=== PATIENT | female | born 1960 | race Caucasian/White ===

== ENCOUNTER → 2018-02-23 | Outpatient (CLI) | payer OTHER | LOC: M RAD 15:51 | DX: M51.36 Other intervertebral disc degeneration, lumbar region (principal); M51.26 Other intervertebral disc displacement, lumbar region; M48.061 Spinal stenosis, lumbar region without neurogenic claudication | CPT/HCPCS: 72148 ==

== ENCOUNTER → 2018-06-18 | Outpatient (REF) | payer OTHER ==
[2018-06-18 13:55] LABS: PLATELET COUNT, AUTOMATED 119 10^3/uL (150-450)
[2018-06-18 14:05] LABS: INR 0.97; PARTIAL THROMBOPLASTIN TIME 27.8 SECONDS (25.4-37.6)
[2018-06-18 14:17] LABS: COLLAGEN EPINEPHRINE 166 SECONDS (74-162)
[2018-06-18 19:09] LABS: COLLAGEN ADP 110 SECONDS (56-103)
== END ==
LOC: M LABDRAW1 13:02
DX: Z01.812 Encounter for preprocedural laboratory examination (principal); M51.36 Other intervertebral disc degeneration, lumbar region
CPT/HCPCS: 85049

== ENCOUNTER → 2018-07-12 | Outpatient (CLI) | payer OTHER ==
[2018-07-12 16:25] LABS: COLLAGEN EPINEPHRINE 105 SECONDS (74-162)
== END ==
LOC: M LAB 15:50
DX: M51.37 Other intervertebral disc degeneration, lumbosacral region (principal); M47.817 Spondylosis without myelopathy or radiculopathy, lumbosacral region; M48.07 Spinal stenosis, lumbosacral region; M43.17 Spondylolisthesis, lumbosacral region
CPT/HCPCS: 36415

== ENCOUNTER → 2018-07-21 | Outpatient (CLI) | payer OTHER | LOC: M RAD 11:04 | DX: Z12.31 Encounter for screening mammogram for malignant neoplasm of breast (principal); N63.10 Unspecified lump in the right breast, unspecified quadrant | CPT/HCPCS: 77067 ==

== ENCOUNTER → 2018-07-23 | Outpatient (REF) | payer OTHER ==
[2018-07-23 18:00] LABS: BASO % 0.3 % (0.0-1.0); EOS # 0.1 10^3/uL (0.0-0.50); HEMATOCRIT 45.1 % (36.0-47.0); IMMATURE GRANULOCYTE % 0.9 % (0-3.0); LYMPH # 1.9 10^3/uL (1.5-4.5); LYMPH % 18.1 % (24.0-44.0); MEAN CORPUSCULAR HEMOGLOBIN 29.7 pg (27.0-33.0); MEAN CORPUSCULAR HGB CONC 33.3 g/dl (32.0-36.5); MEAN CORPUSCULAR VOLUME 89.3 fl (80.0-96.0); MONO # 0.9 10^3/uL (0.0-0.8); MONO % 8.1 % (0.0-5.0); NEUTROPHILS # 7.5 10^3/uL (1.8-7.7); NEUTROPHILS % 71.6 % (36.0-66.0); PLATELET COUNT, AUTOMATED 104 10^3/uL (150-450); RED BLOOD COUNT 5.05 10^6/uL (4.00-5.40); WHITE BLOOD COUNT 10.5 10^3/uL (4.0-10.0)
== END ==
LOC: M LAB REF 16:28
DX: D69.6 Thrombocytopenia, unspecified (principal)
CPT/HCPCS: 85025

== ENCOUNTER → 2018-08-05 | Outpatient (CLI) | payer OTHER | LOC: M RAD 12:14 | DX: N63.13 Unspecified lump in the right breast, lower outer quadrant (principal) | CPT/HCPCS: 77065 ==

== ENCOUNTER → 2018-08-19 | Outpatient (CLI) | payer OTHER ==
[~2018-08-19] MED LIST: LIDOCAINE 1% MDV 20ML VIAL As Ordered ONE
--- NOTE | 2018-08-19 13:49 | REP ---
ULTRASOUND RIGHT BREAST: Ultrasound right breast was performed in the region of 2-o'clock to 4-o'clock at the site of the small nodule seen on the prior ultrasound dated 08/05/2018. The previously noted nodule at 4-o'clock cannot be visualized on today's exam. Repeat mammogram was performed in the MLO and CC projections and show persistence of a nodule at the 3-o'clock position of the right breast. We will perform the biopsy using stereotactic guidance instead of ultrasound guidance. Electronically Signed by Javed Valentino MD 08/19/2018 04:32 P
--- NOTE | 2018-08-19 14:35 | REP ---
POST BIOPSY MAMMOGRAM RIGHT BREAST: Post biopsy mammogram right breast was performed in the MLO, ML and CC projections. A metallic biopsy marking clip is seen at the site of the small nodule in the medial right breast status-post stereotactic biopsy. Electronically Signed by Javed Valentino MD 08/19/2018 04:35 P
--- NOTE | 2018-08-19 14:40 | REP ---
STEREOTACTIC BIOPSY RIGHT BREAST: Patient presented today for ultrasound guided biopsy of a small subcentimeter nodule in the medial aspect of the right breast. The other nodule could not be seen sonographically. Mammography of the right breast showed persistence of the nodule. Stereotactic biopsy of the nodule was performed. Informed consent was obtained. CC approach was utilized. Stereotactic paired images show a nodule in the biopsy window. Under sterile conditions and after satisfactory administration of local anesthesia, using an 8-core vacuum-assisted biopsy device, six core biopsy samples are obtained without difficulty. A metallic marking clip was placed at the site of the biopsy. Needle was removed and hemostasis obtained. There were no immediate complications. A post-procedure mammogram shows the metallic clip at the site of the nodule. Electronically Signed by Javed Valentino MD 08/19/2018 04:35 P
== END ==
LOC: M RADPRO 11:02
PROVIDERS: ATTEND Surgery
DX: D24.1 Benign neoplasm of right breast (principal)

== ENCOUNTER → 2018-09-14 | Outpatient (REF) | payer OTHER, MEDICAID ==
[2018-09-14 17:04] LABS: BASO % 0.4 % (0.0-1.0); EOS # 0.2 10^3/uL (0.0-0.50); EOS % 2.3 % (0.0-3.0); HEMATOCRIT 38.8 % (36.0-47.0); HEMOGLOBIN 13.8 g/dl (12.0-15.5); LYMPH # 2.3 10^3/uL (1.5-4.5); LYMPH % 31.3 % (24.0-44.0); MEAN CORPUSCULAR HEMOGLOBIN 33.3 pg (27.0-33.0); MEAN CORPUSCULAR HGB CONC 35.6 g/dl (32.0-36.5); MEAN CORPUSCULAR VOLUME 93.7 fl (80.0-96.0); MONO # 0.6 10^3/uL (0.0-0.8); MONO % 8.5 % (0.0-5.0); NEUTROPHILS # 4.2 10^3/uL (1.8-7.7); NEUTROPHILS % 57.1 % (36.0-66.0); RED BLOOD COUNT 4.14 10^6/uL (4.00-5.40); WHITE BLOOD COUNT 7.3 10^3/uL (4.0-10.0)
== END ==
LOC: M LAB REF 16:40
PROVIDERS: ATTEND Family Medicine Addiction Medicine
DX: D69.6 Thrombocytopenia, unspecified (principal)

== ENCOUNTER → 2018-11-29 | Outpatient (CLI) | payer OTHER | LOC: M CARPUL 12:48 | PROVIDERS: ATTEND Internal Medicine Cardiovascular Disease | DX: R06.02 Shortness of breath (principal); Z53.9 Procedure and treatment not carried out, unspecified reason ==

== ENCOUNTER → 2018-12-16 | Outpatient (REF) | payer OTHER ==
[2018-12-18 15:08] LABS: HPV HYBRID CAPTURE II Negative (Negative)
== END ==
LOC: M LAB REF 18:37
PROVIDERS: ATTEND Nurse Practitioner Family
DX: Z12.4 Encounter for screening for malignant neoplasm of cervix (principal)

== ENCOUNTER → 2019-01-28 | Outpatient (REF) | payer OTHER, MEDICAID ==
[2019-01-28 14:17] LABS: ALBUMIN 3.8 GM/DL (3.2-5.2); ALT/SGPT 52 U/L (12-78); BILIRUBIN,TOTAL 0.5 MG/DL (0.2-1.0); BLOOD UREA NITROGEN 20 MG/DL (7-18); CALCIUM LEVEL 8.5 MG/DL (8.5-10.1); CARBON DIOXIDE LEVEL 27 MEQ/L (21-32); CHLORIDE LEVEL 106 MEQ/L (98-107); CHOLESTEROL LEVEL 166 MG/DL (<200); CHOLESTEROL RISK RATIO 6.148 (<5); CREATININE FOR GFR 0.75 MG/DL (0.55-1.30); GLOMERULAR FILTRATION RATE > 60.0 (>51); GLUCOSE, FASTING 134 MG/DL (70-100); HDL CHOLESTEROL 27 MG/DL (>40); LDL CHOLESTEROL 92 MG/DL (<100); NON-HDL-C 139 MG/DL; POTASSIUM SERUM 4.1 MEQ/L (3.5-5.1); SODIUM LEVEL 141 MEQ/L (136-145); TOTAL PROTEIN 7.8 GM/DL (6.4-8.2); TRIGLYCERIDES LEVEL 237 MG/DL (<150)
== END ==
LOC: M LAB REF 12:54
PROVIDERS: ATTEND Family Medicine Addiction Medicine
DX: Z00.00 Encounter for general adult medical examination without abnormal findings (principal)

== ENCOUNTER → 2019-02-15 | Outpatient (CLI) | payer OTHER ==
--- NOTE | 2019-02-17 20:45 | SLEEPHOME ---
DATE OF PROCEDURE: 02/15/2019 ORDERED BY: Kasihf Patel PA-C Diagnostic home sleep testing was performed due to concern for the obstructive sleep apnea syndrome in this patient with a history of excessive somnolence and nonrestorative sleep. For testing, a nocturnal T3 respiratory monitoring device was used. Continuous record was made of pulse, oxygen saturation, airflow, chest, abdominal strain and body position. 9 hours and 59 minutes of data were reviewed. There 5 hours of 57 minutes marked as time in bed. During the interval marked time in bed there were 44 respiratory events identified of 10 seconds in duration or greater for a respiratory event index of 7.4. The events were primarily obstructive. Baseline pulse rate 78, pulse rate ranged 63-113. Baseline saturation was 90%. Saturations fell to 73%. Testing was performed in both the supine and nonsupine positions. IMPRESSION Abnormal home sleep testing with repetitive respiratory events and oxygen desaturations to 73% with a respiratory event index of 7.4 is consistent with the obstructive sleep apnea syndrome. RECOMMENDATIONS The patient should undergo formal sleep evaluation.
== END ==
LOC: M SLEEP HO 10:17
PROVIDERS: ATTEND Physician Assistant
DX: R40.0 Somnolence (principal)

== ENCOUNTER → 2019-02-15 | Outpatient (CLI) | payer OTHER ==
[~2019-02-15] MED LIST changes: -LIDOCAINE 1% MDV 20ML VIAL As Ordered ONE; +METHACHOLINE KIT (J7674) INH ONE
--- NOTE | 2019-02-15 10:13 | PFTRPT ---
Height: 60.00 Inches Weight: 153.00 Lbs BSA: 1.67 Diagnosis: R06.00 DATE OF PROCEDURE: 02/15/2019 ORDERED BY: Ras Patel PA-C INTERPRETATION: Study of excellent technical quality. Under protocol, methacholine was administered. Marked difficulty with the required maneuvers is noted. At a dose of 0.025 mg (0.125 CDUs), a 26% decline in the FEV1 was noted. No PC calculated. Difficulty with the maneuver hampers data acquisition. Flow rates did return to baseline post bronchodilator administration. IMPRESSION: Probably positive methacholine challenge study. MTDD
== END ==
LOC: M CARPUL 09:10
PROVIDERS: ATTEND Physician Assistant
DX: R06.00 Dyspnea, unspecified (principal)
CPT/HCPCS: 94070; 95070; J7674

== ENCOUNTER → 2019-07-15 | Outpatient (REF) | payer OTHER ==
[2019-07-15 18:05] LABS: ALT/SGPT 24 U/L (12-78); BILIRUBIN,TOTAL 0.7 MG/DL (0.2-1.0); BLOOD UREA NITROGEN 20 MG/DL (7-18); CALCIUM LEVEL 9.4 MG/DL (8.5-10.1); CARBON DIOXIDE LEVEL 27 MEQ/L (21-32); CHLORIDE LEVEL 106 MEQ/L (98-107); CHOLESTEROL LEVEL 199 MG/DL (<200); CHOLESTEROL RISK RATIO 4.522 (<5); CREATININE FOR GFR 0.67 MG/DL (0.55-1.30); GLOMERULAR FILTRATION RATE > 60.0 (>51); GLUCOSE, FASTING 123 MG/DL (70-100); HDL CHOLESTEROL 44 MG/DL (>40); LDL CHOLESTEROL 134 MG/DL (<100); NON-HDL-C 155 MG/DL; POTASSIUM SERUM 3.9 MEQ/L (3.5-5.1); SODIUM LEVEL 139 MEQ/L (136-145); TOTAL PROTEIN 8.2 GM/DL (6.4-8.2); TRIGLYCERIDES LEVEL 103 MG/DL (<150)
[2019-07-15 18:28] LABS: HEMOGLOBIN A1c 5.9 %
== END ==
LOC: M LAB REF 16:36
PROVIDERS: ATTEND Nurse Practitioner Family
DX: Z00.00 Encounter for general adult medical examination without abnormal findings (principal)

== ENCOUNTER → 2020-05-28 | Outpatient (REF) | payer OTHER, MEDICAID ==
[2020-05-28 13:05] LABS: ALBUMIN 3.6 GM/DL (3.2-5.2); ALT/SGPT 25 U/L (12-78); BILIRUBIN,TOTAL 0.5 MG/DL (0.2-1.0); BLOOD UREA NITROGEN 16 MG/DL (7-18); CALCIUM LEVEL 8.7 MG/DL (8.5-10.1); CARBON DIOXIDE LEVEL 30 MEQ/L (21-32); CHLORIDE LEVEL 106 MEQ/L (98-107); CHOLESTEROL LEVEL 159 MG/DL (<200); CHOLESTEROL RISK RATIO 4.968 (<5); CREATININE FOR GFR 0.73 MG/DL (0.55-1.30); GLOMERULAR FILTRATION RATE > 60.0 (>51); GLUCOSE, FASTING 107 MG/DL (70-100); HDL CHOLESTEROL 32 MG/DL (>40); LDL CHOLESTEROL 79 MG/DL (<100); NON-HDL-C 127 MG/DL; SODIUM LEVEL 141 MEQ/L (136-145); TOTAL PROTEIN 7.3 GM/DL (6.4-8.2); TRIGLYCERIDES LEVEL 241 MG/DL (<150)
[2020-05-28 13:28] LABS: HEMOGLOBIN A1c 5.7 %
== END ==
LOC: M LAB REF 12:14
PROVIDERS: ATTEND Family Medicine Addiction Medicine
DX: R73.03 Prediabetes (principal); E78.1 Pure hyperglyceridemia

== ENCOUNTER → 2020-11-05 | Outpatient (REF) | payer OTHER, MEDICAID ==
[2020-11-05 17:28] LABS: HEMOGLOBIN A1c 5.9 %
[2020-11-05 17:32] LABS: ALBUMIN 3.9 GM/DL (3.2-5.2); ALT/SGPT 26 U/L (12-78); BILIRUBIN,TOTAL 0.9 MG/DL (0.2-1.0); BLOOD UREA NITROGEN 12 MG/DL (7-18); CALCIUM LEVEL 8.7 MG/DL (8.5-10.1); CARBON DIOXIDE LEVEL 30 MEQ/L (21-32); CHLORIDE LEVEL 102 MEQ/L (98-107); CHOLESTEROL LEVEL 154 MG/DL (<200); CHOLESTEROL RISK RATIO 4.052 (<5); CREATININE FOR GFR 0.64 MG/DL (0.55-1.30); GLOMERULAR FILTRATION RATE > 60.0 (>51); GLUCOSE, FASTING 107 MG/DL (70-100); HDL CHOLESTEROL 38 MG/DL (>40); LDL CHOLESTEROL 98 MG/DL (<100); NON-HDL-C 116 MG/DL; POTASSIUM SERUM 3.7 MEQ/L (3.5-5.1); SODIUM LEVEL 138 MEQ/L (136-145); TOTAL PROTEIN 7.3 GM/DL (6.4-8.2); TRIGLYCERIDES LEVEL 90 MG/DL (<150)
== END ==
LOC: M LAB REF 16:25
PROVIDERS: ATTEND Family Medicine Addiction Medicine
DX: E03.9 Hypothyroidism, unspecified (principal); R73.03 Prediabetes

== ENCOUNTER 2020-11-13 16:43 | Inpatient (IN) | payer OTHER, MEDICAID ==
[~2020-11-13] VITALS: Ht 152.4 cm; Wt 76.2 kg
[2020-11-13] MEDS ORDERED: DULO1CAP5 PO (17:09)
[2020-11-13] MEDS ORDERED: GABA600T4 PO (17:09)
[2020-11-13] MEDS ORDERED: ALBU8.5H INH (17:09)
[2020-11-13] MEDS ORDERED: DULO1CAP6 PO (17:09)
[2020-11-13] MEDS ORDERED: LEVO50TA5 PO (17:09)
[2020-11-13] MEDS ORDERED: ARNU1INH3 INH (17:09)
[2020-11-13] MEDS ORDERED: MELO15TA28 PO (17:09)
[2020-11-13] MEDS ORDERED: NS 1,000 ML IV ONE (18:25)
[2020-11-13] MEDS ORDERED: ONDANSETRON 4MG/2ML VIAL IV ONE (18:25)
[2020-11-13 18:36] LABS: VENOUS BASE EXCESS 3.7 (-2.0-2.0); VENOUS HCO3 28.7 MEQ/L (23.0-27.0); VENOUS O2 SATURATION 66.4 % (60.0-80.0); VENOUS PARTIAL PRESSURE CO2 44.7 mmHg (38.0-50.0); VENOUS PARTIAL PRESSURE O2 35.1 mmHg (30.0-50.0); VENOUS PH 7.425 UNITS (7.330-7.430)
[2020-11-13 18:40] LABS: BASO % 0.3 % (0.0-1.0); EOS % 0.1 % (0.0-3.0); HEMATOCRIT 40.8 % (36.0-47.0); HEMOGLOBIN 13.6 g/dl (12.0-15.5); LYMPH # 1.2 10^3/uL (1.5-5.0); LYMPH % 16.1 % (24.0-44.0); MEAN CORPUSCULAR HEMOGLOBIN 29.3 pg (27.0-33.0); MEAN CORPUSCULAR HGB CONC 33.3 g/dl (32.0-36.5); MEAN CORPUSCULAR VOLUME 87.9 fl (80.0-96.0); MONO # 0.7 10^3/uL (0.0-0.8); MONO % 9.4 % (2.0-8.0); NEUTROPHILS # 5.7 10^3/uL (1.5-8.5); NEUTROPHILS % 73.4 % (36.0-66.0); PLATELET COUNT, AUTOMATED 174 10^3/uL (150-450); RED BLOOD COUNT 4.64 10^6/uL (4.00-5.40); WHITE BLOOD COUNT 7.7 10^3/uL (4.0-10.0)
--- NOTE | 2020-11-13 18:46 | REP ---
INDICATION: cough, SOB. COMPARISON: Comparison chest x-ray November 25, 2018. TECHNIQUE: Portable upright AP chest radiograph. FINDINGS: There are patchy infiltrates in the right perihilar, lower lobe, and upper lobe region consistent with pneumonia. Few increased markings are seen in the left perihilar region. Pleural angles are sharp. Cardiomediastinal silhouette is unremarkable.. Pulmonary vasculature is not increased. Monitoring electrodes are seen. IMPRESSION: Patchy bilateral infiltrates right greater than left. Findings consistent with pneumonia.. <Electronically signed by Frederic Rosas > 11/13/20 [id number]
[2020-11-13 19:00] LABS: D-DIMER QUANT 446.85 ng/ml (<500)
[2020-11-13 19:23] LABS: ALBUMIN 3.4 GM/DL (3.2-5.2); ALT/SGPT 25 U/L (12-78); BILIRUBIN,DIRECT 0.3 MG/DL (0.0-0.2); BILIRUBIN,TOTAL 0.8 MG/DL (0.2-1.0); CK-MB VALUE MASS < 1.0 NG/ML (<3.6); CPK CREATINE PHOSPHOKINASE 44 U/L (26-192); MB/CK RELATIVE INDEX 2.27 (< OR =4); NT-PRO BNP 54 PG/ML (<125); THYROXINE (T4) 16.2 UG/DL (4.5-12.0); TOTAL PROTEIN 7.3 GM/DL (6.4-8.2); TROPONIN I < 0.02 NG/ML (< 0.10)
[2020-11-13 19:30] LABS: RSV AMPLIFICATION NEGATIVE (NEGATIVE)
[2020-11-13] MEDS ORDERED: ACETAMINOPHEN TAB 650MG DOSE (2X325MG) PO PRN (20:25)
[2020-11-13] MEDS ORDERED: MOM 30ML SUSPENSION UDC PO PRN (20:25)
[2020-11-13] MEDS ORDERED: MAALOX 30 ML SUSP *UDC PO PRN (20:25)
--- NOTE | 2020-11-13 20:29 | HPEPDOC ---
[facility] Medical History & Physical Date of Admission Nov 13, 2020 Date of Service: Nov 13, 2020 Other Provider Eladio Parra MD Attending Physician: LILIA GODDARD MD History and Physical TIME OF SERVICE: 955pm CHIEF COMPLAINT: shortness of breath HISTORY OF PRESENT ILLNESS: This 59 yr old F presented w c/o shortness of breath for 1 week, fatigue, productive cough, poor appetite, dizziness, nausea. She recently attended a gender reveal democrat with multiple family members who were diagnosed with COVID. She tested neg for COVID while at an urgent care center today but she was sent to the ER bc her O2 sats were low. Per d/w Latoya the pts O2 sats were as low as the mid 80s on RA and the pt became tachypneic when she walks. REVIEW OF SYSTEMS: 12-point review of systems negative except as listed in HPI PAST MEDICAL/ SURGICAL HISTORY: Asthma Hyperthyroidism ANGELA Class 1 obesity Appendectomy x 4 SOCIAL HISTORY: she doesnt smoke FAMILY HISTORY: n/a ALLERGIES: Please see below. HOME MEDICATIONS: Please see below. PHYSICAL EXAMINATION: Vital Signs Date Time Temp Pulse Resp B/P (MAP) Pulse Ox O2 Delivery O2 Flow Rate FiO2 11/13/20 16:46 99.0 91 20 128/66 (86) 95 Room Air 11/13/20 22:35 2.0 GENERAL APPEARANCE: well nourished and developed / NAD HEENT: EOMI/ NC in place CARDIOVASCULAR: RRR/NMRG LUNGS: able to speak full sentences w/o stopping to breath / not using accessory muscles/ breath sounds diminished MUSCULOSKELETAL: NCAT / ROMIx 4 INTEGUMENT: not flushed or cyanotic NEUROLOGICAL: CN 2-12 intact / speech not dysarthric PSYCHIATRIC: A& ox 3 /able to understand and follow commands LABORATORY DATA: 11/13/20 18:30 11/13/20 18:30: Immature Granulocyte % (Auto) 0.7, Neutrophils (%) (Auto) 73.4H, Lymphocytes (%) (Auto) 16.1L, Monocytes (%) (Auto) 9.4H, Eosinophils (%) (Auto) 0.1, Basophils (%) (Auto) 0.3, Neutrophils # (Auto) 5.7, Lymphocytes # (Auto) 1.2L, Monocytes # (Auto) 0.7, Eosinophils # (Auto) 0.0, Basophils # (Auto) 0.0, Nucleated Red Blood Cells % (auto) 0.0, D-Dimer, Quantitative 446.85, Blood Gas Bicarbonate Standard 27.0, Venous Blood pH 7.425, Venous Blood Partial Pressure CO2 44.7, Venous Blood Partial Pressure O2 35.1, Venous Blood Total Carbon Dioxide 30.0H, Venous Blood HCO3 28.7H, Venous Blood Oxygen Saturation 66.4, Venous Blood Base Excess 3.7H, Lactic Acid Level 1.2, Total Bilirubin 0.8, Direct Bilirubin 0.3H, Aspartate Amino Transf (AST/SGOT) 23, Alanine Aminotransferase (ALT/SGPT) 25, Alkaline Phosphatase 75, Total Creatine Kinase 44, Creatine Kinase MB < 1.0, Creatine Kinase MB Relative Index 2.27, Troponin I < 0.02, OE-Ymt-D-Type Natriuretic Peptide 54, Total Protein 7.3, Albumin 3.4, Albumin/Globulin Ratio 0.9L, Thyroid Stimulating Hormone (TSH) 1.470, Thyroxine (T4) 16.2H, IMAGING: Chest xray Patchy bilateral infiltrates right greater than left. Findings consistent with pneumonia.. MICROBIOLOGY: Coronavirus (COVID-19)(PCR) POSITIVEA, Influenza Type A (RT-PCR) NEGATIVE, Influenza Type B (RT-PCR) NEGATIVE, Respiratory Syncytial Virus (PCR) NEGATIVE ASSESSMENT: is a 59 yr old w a hx of asthma, hypothyroidism, ANGELA and obesity who is admitted for hypoxemia 2/2 COVID-19. PLAN: 1 COVID-19 Plan: admit to medical floor / continuous pulse ox / supplemental O2 up to 3L with target O2 sats between 92-95% / contact & air borne precautions / f/u missing COVID labs LDH, CRP, PT/PTT and ferritin / start Remdesivir & steroids w PPI / I doubt she has PNA bc she doesnt have a fever or elevated WBC # therefore will not order procalcitonin , sputum cx, strep pneumo, legionella & mycoplasma, MRSA to r/o bacterial PNA 2. SIRS Tachycardia and tachypnea are likely reactive. She doesnt appear toxic Plan; monitor vitals 3. Chronic Asthma She is not wheezing Plan: c/w Fluticasone & albuterol 3. Hypothyroidism Plan: Levothyroxine 4. Obesity Complicates care Plan: f/u A1C DVT px w Lovenox / no ASA bc of allergy Dispo: home after at least 2 midnights stay Home Medications Scheduled Duloxetine Hcl (Duloxetine HCl) 30 Mg Capsule.dr, 30 MG PO QHS TAKES WITH 60 MG FOR 90MG TOTAL DOSE Duloxetine Hcl (Duloxetine HCl) 60 Mg Capsule.dr, 60 MG PO QHS TAKES WITH 30 MG FOR 90MG TOTAL DOSE Fluticasone Furoate (Arnuity Ellipta) 200 Mcg Blst.w.dev, 1 PUFF INH DAILY Gabapentin (Gabapentin) 600 Mg Tablet, 600 MG PO TID Levothyroxine Sodium (Levothyroxine Sodium) 50 Mcg Tablet, 50 MCG PO QAM Loperamide HCl (Anti-Diarrheal) 2 Mg Capsule, 2 MG PO BID Meloxicam (Meloxicam) 15 Mg Tablet, 15 MG PO QHS Scheduled PRN Albuterol Sulfate (Albuterol Sulfate Hfa) 8.5 Gm Hfa.aer.ad, 2 PUFFS INH QID PRN for SOB/COUGH Allergies Coded Allergies: aspirin (Verified Allergy, Unknown, 02/10/19) honey (Verified Allergy, Unknown, 02/10/19) tetracycline (Verified Allergy, Unknown, 02/10/19) meperidine (Verified Adverse Reaction, Unknown, N/V, 02/10/19) A-FIB/CHADSVASC A-FIB History Current/History of A-Fib/PAF?: No Current PO Anticoag Therapy: LILIA Douglas MD Nov 13, 2020 20:29
[2020-11-13] MEDS ORDERED: LOPE-26 PO (20:32)
--- NOTE | 2020-11-13 20:38 | ECGEPIP ---
[facility] - ED Test Date: 2020-11-13 Pat Name: ELENA COLLINS Department: Room: - Gender: Female [employer] Commanding Officer: RAUDEL : 1960 Requested By: PALOMA Garcia Order Number: [id number] Reading MD: Mark Prater Measurements Intervals Gaffney Rate: 95 P: 30 VT: 160 QRS: 18 QRSD: 66 T: 30 QT: 366 QTc: 459 Interpretive Statements Normal sinus rhythm BASELINE ARTIFACT AFFECTS INTERPRETATION NO PRIORS FOR COMPARISON Electronically Signed on 11-13-2020 20:38:30 EDT by Mark Prater
[2020-11-13 20:44] LABS: INR 1.09; PROTHROMBIN TIME 14.3 SECONDS (12.5-14.3)
[2020-11-13 20:45] LABS: PARTIAL THROMBOPLASTIN TIME 35.6 SECONDS (24.2-38.5)
[2020-11-13 20:50] LABS: C REACTIVE PROTEIN QUANTITATIV 3.01 MG/DL (0.00-0.30); FERRITIN 521 NG/ML (8-252); LDH LACTATE DEHYDROGENASE 301 U/L (84-246)
[2020-11-13] MEDS ORDERED: REMDESIVIR 200 MG in NS 250 ML IV ONE (21:30)
[2020-11-13 22:35] VITALS: BP 101/59
[2020-11-13] MEDS ORDERED: ALBUTEROL 90 MCG/ACT 8GM HFA INHALER INH PRN (22:55)
[2020-11-13] MEDS ORDERED: DULoxetine 30 MG CAP (CYMBALTA) PO SCH (22:55)
[2020-11-13] MEDS: GABAPENTIN 300 MG CAP PO SCH (23:14)
[2020-11-13] MEDS ORDERED: SODIUM CHLORIDE 0.9% INJ 10 ML SYR IV ONE (23:30)
[2020-11-14] VITALS (8 sets, daily range): BP systolic 100–105; BP diastolic 58–63; O2SAT 91–94
[2020-11-14] MEDS: FLUTICASONE HFA 220 MCG 12 GM INHALER (FLOVENT) INH SCH ×2 (00:03→07:37)
[2020-11-14 06:37] LABS: BASO % 0.2 % (0.0-1.0); EOS % 0.5 % (0.0-3.0); HEMATOCRIT 35.7 % (36.0-47.0); HEMOGLOBIN 11.7 g/dl (12.0-15.5); LYMPH # 1.3 10^3/uL (1.5-5.0); LYMPH % 20.9 % (24.0-44.0); MEAN CORPUSCULAR HEMOGLOBIN 29.2 pg (27.0-33.0); MEAN CORPUSCULAR HGB CONC 32.8 g/dl (32.0-36.5); MONO # 0.7 10^3/uL (0.0-0.8); MONO % 12.3 % (2.0-8.0); NEUTROPHILS % 65.4 % (36.0-66.0); PLATELET COUNT, AUTOMATED 145 10^3/uL (150-450); RED BLOOD COUNT 4.01 10^6/uL (4.00-5.40)
[2020-11-14 06:57] LABS: BLOOD UREA NITROGEN 9 MG/DL (7-18); CALCIUM LEVEL 7.4 MG/DL (8.5-10.1); CARBON DIOXIDE LEVEL 27 MEQ/L (21-32); CHLORIDE LEVEL 106 MEQ/L (98-107); CREATININE FOR GFR 0.44 MG/DL (0.55-1.30); GLOMERULAR FILTRATION RATE > 60.0 (>51); GLUCOSE, FASTING 108 MG/DL (70-100); POTASSIUM SERUM 3.2 MEQ/L (3.5-5.1); SODIUM LEVEL 140 MEQ/L (136-145)
[2020-11-14 07:01] LABS: HEMOGLOBIN A1c 6.1 %
[2020-11-14] MEDS ORDERED: POTASSIUM CHLORIDE 10 MEQ SR TABLET PO ONE (07:30)
[2020-11-14] MEDS: GABAPENTIN 300 MG CAP PO SCH (08:16)
[2020-11-14] MEDS ORDERED: PANTOPRAZOLE 40MG TAB (PROTONIX) PO SCH (09:00)
[2020-11-14] MEDS ORDERED: dexameTHASONE 4 MG/ML 1ML VIAL (J1100 PER 1MG) IV SCH (09:00)
[2020-11-14] MEDS ORDERED: LEVOTHYROXINE 50MCG TABLET (0.05MG) PO SCH (09:00)
[2020-11-14] MEDS ORDERED: ENOXAPARIN 40MG/0.4ML SYRINGE (J1650 PER 10MG) SC SCH (09:00)
[2020-11-14] MEDS ORDERED: BENZ200C70 PO (11:21)
[2020-11-14] MEDS ORDERED: PANT40TA29 PO (11:21)
[2020-11-14] MEDS ORDERED: VENTAER INH (11:21)
[2020-11-14] MEDS ORDERED: DEXA6TAB PO (11:21)
[2020-11-14] MEDS ORDERED: ONDANSETRON 4 MG ORAL DISINTEGRATING TAB PO ONE (11:35)
[2020-11-14] MEDS ORDERED: ZOFR4TAB16 PO (11:37)
--- NOTE | 2020-11-14 15:33 | DS.PDOC ---
Discharge Summary General Date of Admission Nov 13, 2020 at 22:53 Date of Discharge 11/14/20 Attending Physician: CRISTA KENNEDY MD Specialist/Consultants Involve Primary Care Provider: Eladio Parra MD Discharge Summary PROCEDURES PERFORMED DURING STAY: [None]. ADMITTING DIAGNOSES: 1. Hypoxia 2/2 COVID-19 Pneumonia 2. Diarrhea 3. Obesity DISCHARGE DIAGNOSES: 1. Hypoxia 2/2 COVID-19 Pneumonia 2. Diarrhea 3. Obesity COMPLICATIONS/CHIEF COMPLAINT: Covid-19. HISTORY OF PRESENT ILLNESS: Patient is a 59 year old female with a past medical history significant for asthma, hyperthyroidism, ANGELA, and obesity who presented to the [facility] ER with complaint of increased shortness of breath over the past week, cough, fatigue, and diarrhea. Patient had stated that she attended a democrat/gathering for a gender [employer] democrat a week or so prior to the start of her symptoms. She stated that a few of the people who attended had recently tested positive for COVID-19. At the time the patient had presented to an urgent care for testing. She had apparently tested negative however had continued shortness of breath and therefore presented to the ED. In the ED the patient was noted to be hypoxic. Reportedly the patient had O2 saturation as low as the mid 80's on room air and was noted to become tachypneic with exertion. Patient did receive a chest x-ray which demonstrated bilateral patchy infiltrates which is consistent with a viral pneumonia HOSPITAL COURSE: On hospitalization the patient was given a loading dose of remdesivir. She was continued on nasal cannula overnight. The patient was hypoxic. She was not requiring high levels of oxygen supplementation. In the AM the patient stated she felt ok. She did state that she had decrease in taste and therefore she did not like eating. Additionally she stated that she had some loose stools although she has a history of IBS. The patient stated that she felt good enough to go home. She was only requiring 1L NC. The patient was discharged home on 1L supplemental oxygen. She was given an albuterol HFA prn, Benzonatate, and a 4 day course of Decadron to finish a total of 6 days. Patient was instructed to stay hydrated and try to eat. She stated that she had some nausea and was given a script for Zofran. Patient was recommended to follow-up with her PCP after her quarantine. She was instructed to avoid large gatherings and adhere to CDC and public health guidelines now and after she recovers. DISCHARGE MEDICATIONS: Please see below. ALLERGIES: Please see below. PHYSICAL EXAMINATION ON DISCHARGE: VITAL SIGNS: Please see below. GENERAL: Awake, alert, and oriented. Appears in no acute distress. Lying comfortably in bed. HEENT: Atraumatic, normocephalic. Eyes are nonicteric. Trachea is midline. M ucous membranes are pink and moist. Missing teeth otherwise fair dentition NECK: No palpable cervical, axillary, or supraclavicular lymphadenopathy CARDIOVASCULAR EXAMINATION: Normal S1, S2. Regular rate and rhythm. No clicks rubs or murmurs RESPIRATORY EXAMINATION: Mild crackles in the bases bilaterally. No wheezes or rhonchi. Symmetric chest expansion. ABDOMINAL EXAMINATION: Obese. Soft, nondistended. Nontender. Normoactive bowel sounds EXTREMITIES: No edema. Full and equal pulses in bilateral upper and lower extremities SKIN: No rashes or lesions NEUROLOGICAL EXAMINATION: No focal neurological deficits PSYCHIATRIC EXAMINATION: Mood and affect appear appropriate LABORATORY DATA: Please see below. IMAGING: INDICATION: cough, SOB. COMPARISON: Comparison chest x-ray November 25, 2018. TECHNIQUE: Portable upright AP chest radiograph. FINDINGS: There are patchy infiltrates in the right perihilar, lower lobe, and upper lobe region consistent with pneumonia. Few increased markings are seen in the left perihilar region. Pleural angles are sharp. Cardiomediastinal silhouette is unremarkable.. Pulmonary vasculature is not increased. Monitoring electrodes are seen. IMPRESSION: Patchy bilateral infiltrates right greater than left. Findings consistent with pneumonia.. <Electronically signed by Frederic Rosas > 11/13/20 7006 PROGNOSIS: Fair ACTIVITY: [As tolerated]. DIET: Consistent Carb DISCHARGE PLAN: Patient is to be discharged home with supplemental oxygen. She is to remain in quarantine per CDC and Public health guidelines. She is to follow-up with PCP in 7-10 days. Patient is to continue medications as prescribed DISPOSITION: 06 Home Health Service. DISCHARGE INSTRUCTIONS: 1. Follow-up PCP in 7-10 days 2. Quarantine per Public Health Department Guidelines 3. Use Albuterol HFA as needed for shortness of breath/cough 4. Take Benzonatate as needed for cough 5. Continue Decadron 6mg daily for 4 days to complete course 6. Avoid social gatherings and adhere to CDC and Public Health guidelines regarding social distancing DISCHARGE CONDITION: [Stable]. TIME SPENT ON DISCHARGE: Greater than 40 minutes. Vital Signs/I&Os Vital Signs Date Time Temp Pulse Resp B/P (MAP) Pulse Ox O2 Delivery O2 Flow Rate FiO2 11/14/20 12:12 94 Nasal Cannula 1.0 11/14/20 07:54 97.1 89 17 105/63 (77) I&O- Last 24 Hours up to 6 AM 11/14/20 06:00 Intake Total 1000 ml Output Total 200 ml Balance 800 ml Laboratory Data Labs 24H Laboratory Tests 2 11/13/20 18:30: Immature Granulocyte % (Auto) 0.7, Neutrophils (%) (Auto) 73.4H, Lymphocytes (%) (Auto) 16.1L, Monocytes (%) (Auto) 9.4H, Eosinophils (%) (Auto) 0.1, Basophils (%) (Auto) 0.3, Neutrophils # (Auto) 5.7, Lymphocytes # (Auto) 1.2L, Monocytes # (Auto) 0.7, Eosinophils # (Auto) 0.0, Basophils # (Auto) 0.0, Nucleated Red Blood Cells % (auto) 0.0, Prothrombin Time 14.3H, Prothromb Time International Ratio 1.09, Activated Partial Thromboplast Time 35.6, Fibrinogen 697H, D-Dimer, Quantitative 446.85, Blood Gas Bicarbonate Standard 27.0, Venous Blood pH 7.425, Venous Blood Partial Pressure CO2 44.7, Venous Blood Partial Pressure O2 35.1, Venous Blood Total Carbon Dioxide 30.0H, Venous Blood HCO3 28.7H, Venous Blood Oxygen Saturation 66.4, Venous Blood Base Excess 3.7H, Lactic Acid Level 1.2, Ferritin 521H, Total Bilirubin 0.8, Direct Bilirubin 0.3H, Aspartate Amino Transf (AST/SGOT) 23, Alanine Aminotransferase (ALT/SGPT) 25, Alkaline Phosphatase 75, Lactate Dehydrogenase 301H, Total Creatine Kinase 44, Creatine Kinase MB < 1.0, Creatine Kinase MB Relative Index 2.27, Troponin I < 0.02, C- Reactive Protein, Quantitative 3.01H, RB-Vch-K-Type Natriuretic Peptide 54, Total Protein 7.3, Albumin 3.4, Albumin/Globulin Ratio 0.9L, Thyroid Stimulating Hormone (TSH) 1.470, Thyroxine (T4) 16.2H, Coronavirus (COVID-19)(PCR) POSITIVEA, Influenza Type A (RT-PCR) NEGATIVE, Influenza Type B (RT-PCR) NEGATIVE, Respiratory Syncytial Virus (PCR) NEGATIVE 11/13/20 18:46: POC Glucose (Misc Panel) 120H, POC Sodium (Misc Panel) 137, POC Potassium (Misc Panel) 3.1L, POC Chloride (Misc Panel) 96L, POC Total CO2 (Misc Panel) 30.0H, POC Blood Urea Nitrogen (Misc Panel 9, POC Ionized Calcium (Misc Panel) 4.3L, POC Creatinine (Misc Panel) 0.6, POC Hematocrit (Misc Panel) 42.0 11/14/20 06:08: Immature Granulocyte % (Auto) 0.7, Neutrophils (%) (Auto) 65.4, Lymphocytes (%) (Auto) 20.9L, Monocytes (%) (Auto) 12.3H, Eosinophils (%) (Auto) 0.5, Basophils (%) (Auto) 0.2, Neutrophils # (Auto) 4.0, Lymphocytes # (Auto) 1.3L, Monocytes # (Auto) 0.7, Eosinophils # (Auto) 0.0, Basophils # (Auto) 0.0, Nucleated Red Blood Cells % (auto) 0.0, Anion Gap 7L, Glomerular Filtration Rate > 60.0, Estimated Mean Plasma Glucose 128H, Hemoglobin A1c 6.1, Calcium Level 7.4L 11/14/20 10:57: Lab Scanned Report Miscellaneous Lab CBC/BMP Laboratory Tests 11/13/20 18:30 11/14/20 06:08 Discharge Medications Scheduled Dexamethasone (Dexamethasone) 6 Mg Tablet, 1 TAB PO DAILY Duloxetine Hcl (Duloxetine HCl) 30 Mg Capsule.dr, 30 MG PO QHS, (Reported) TAKES WITH 60 MG FOR 90MG TOTAL DOSE Duloxetine Hcl (Duloxetine HCl) 60 Mg Capsule.dr, 60 MG PO QHS, (Reported) TAKES WITH 30 MG FOR 90MG TOTAL DOSE Fluticasone Furoate (Arnuity Ellipta) 200 Mcg Blst.w.dev, 1 PUFF INH DAILY, (Reported) Gabapentin (Gabapentin) 600 Mg Tablet, 600 MG PO TID, (Reported) Levothyroxine Sodium (Levothyroxine Sodium) 50 Mcg Tablet, 50 MCG PO QAM, (Reported) Loperamide HCl (Anti-Diarrheal) 2 Mg Capsule, 2 MG PO BID, (Reported) Meloxicam (Meloxicam) 15 Mg Tablet, 15 MG PO QHS, (Reported) Ondansetron HCl (Zofran) 4 Mg Tablet, 4 MG PO Q6H Pantoprazole Sodium (Pantoprazole Sodium) 40 Mg Tablet.dr, 40 MG PO DAILY Scheduled PRN Albuterol Sulfate (Albuterol Sulfate Hfa) 8.5 Gm Hfa.aer.ad, 2 PUFFS INH QID PRN for SOB/COUGH, (Reported) Albuterol Sulfate (Ventolin Hfa) 18 Gm Hfa.aer.ad, 2 PUFF INH Q6HP PRN for SHORTNESS OF BREATH Benzonatate (Benzonatate) 200 Mg Capsule, 200 MG PO TID PRN for COUGH MDD 3 Allergies Coded Allergies: aspirin (Verified Allergy, Unknown, 02/10/19) honey (Verified Allergy, Unknown, 02/10/19) tetracycline (Verified Allergy, Unknown, 02/10/19) meperidine (Verified Adverse Reaction, Unknown, N/V, 02/10/19) GME ATTESTATION GME ATTESTATION My faculty preceptor for this patient encounter was physically present during the encounter and was fully available. All aspects of the patient interview, examination, medical decision making process, and medical care plan development were reviewed and approved by the faculty preceptor. The faculty preceptor is aware and concurs with the plan as stated in the body of this note and will attest to such by his/her cosignature. KRYSTAL ARRIETA DO Nov 14, 2020 15:33
[2020-11-14] MEDS ORDERED: REMDESIVIR 100 MG in NS 250 ML IV SCH (23:00)
[2020-11-15] MEDS ORDERED: SODIUM CHLORIDE 0.9% INJ 10 ML SYR IV SCH
== END 2020-11-14 13:59 | disposition home health service (06) | DRG 137 ==
LOC: M ED 16:43 → M ED INP 16:44 → ENRESERV 20:59 → M 4MAIN 22:29 → OBSVTOIN 22:53
PROVIDERS: ADMIT Internal Medicine; ATTEND Internal Medicine
PROC: XW033E5 Introduction of Remdesivir Anti-infective into Peripheral Vein, Percutaneous Approach, New Technology Group 5 (ICD-10-PCS; principal; 2020-11-13)
PROC: 3E0333Z Introduction of Anti-inflammatory into Peripheral Vein, Percutaneous Approach (ICD-10-PCS; 2020-11-13)
DX: U07.1 COVID-19 (principal); J12.82 Pneumonia due to coronavirus disease 2019; J45.909 Unspecified asthma, uncomplicated; E03.9 Hypothyroidism, unspecified; G47.33 Obstructive sleep apnea (adult) (pediatric); E66.9 Obesity, unspecified; K58.0 Irritable bowel syndrome with diarrhea; R09.02 Hypoxemia; Z68.32 Body mass index [BMI] 32.0-32.9, adult; Z88.6 Allergy status to analgesic agent; Z88.8 Allergy status to other drugs, medicaments and biological substances; Z91.018 Allergy to other foods; Z79.899 Other long term (current) drug therapy; Z90.49 Acquired absence of other specified parts of digestive tract

== ENCOUNTER → 2021-01-10 | Outpatient (CLI) | payer OTHER ==
[~2021-01-10] MED LIST changes: +ALBU8.5H INH; +ARNU1INH3 INH; +BENZ200C70 PO; +DEXA6TAB PO; +DULO1CAP5 PO; +DULO1CAP6 PO; +GABA600T4 PO; +LEVO50TA5 PO; +LOPE-26 PO; +MELO15TA28 PO; -METHACHOLINE KIT (J7674) INH ONE; +PANT40TA29 PO; +VENTAER INH; +ZOFR4TAB16 PO
--- NOTE | 2021-01-11 10:34 | SLEEPCENT ---
NOCTURNAL POLYSOMNOGRAPHY CPAP TITRATION DATE: 01/10/2021 ORDERED BY: JOSESITO Pandey Nocturnal polysomnography was performed for the titration of pressure therapy in this patient with a clinical diagnosis of obstructive sleep apnea syndrome, supported by home testing, revealing a respiratory event index of 7.3 with oxygen desaturations to 73%. For testing, the patient was fit with a [employer]Med Quattro full face mask of extra small size was used, 4 cm of water pressure were applied to the circuit, and the lights were extinguished. 6 hours and 43 minutes of data were reviewed. There were 328 minutes of sleep identified. Sleep latency was prolonged at 42 minutes. REM sleep was not achieved. Sleep architecture showed poor progression. Overall sleep efficiency was good at 82%. The electrocardiogram showed a sinus rhythm with an average heart rate of 80 beats per minute. EEG showed significant coarsening and background waveforms consistent with medication effect. No focal events were identified and there were normal waveforms for wake and sleep. Respiratory events were fully palliated with CPAP at a pressure of 6 and with this pressure, there were no significant oxygen desaturations or snoring noted. There was significant activity in the limb leads early in the study. Limb movement arousal index was 11.5. IMPRESSION: 1. Obstructive sleep apnea syndrome (G47.33). 2. Possible periodic limb movement disorder (G47.61), limb movement arousal index 11.5. RECOMMENDATION: Nightly use of pressure therapy at 6 cm of water was sufficient to address respiratory events and maintain adequate saturation. Pending symptom response, interventions to reduce the frequency of arousal from limb activity may also be considered.
== END ==
LOC: M SLEEP 20:00
PROVIDERS: ATTEND Physician Assistant
DX: G47.33 Obstructive sleep apnea (adult) (pediatric) (principal)

== ENCOUNTER → 2022-09-11 | Outpatient (REF) | payer OTHER ==
[2022-09-11 17:13] LABS: BASO % 0.5 % (0.0-1.0); EOS # 0.2 10^3/uL (0.0-0.5); EOS % 2.6 % (0.0-3.0); HEMATOCRIT 44.5 % (36.0-47.0); HEMOGLOBIN 13.9 g/dl (12.0-15.5); LYMPH # 2.4 10^3/uL (1.5-5.0); LYMPH % 30.1 % (24.0-44.0); MEAN CORPUSCULAR HEMOGLOBIN 28.7 pg (27.0-33.0); MEAN CORPUSCULAR HGB CONC 31.2 g/dl (32.0-36.5); MEAN CORPUSCULAR VOLUME 91.9 fl (80.0-96.0); MONO # 0.7 10^3/uL (0.0-0.8); MONO % 9.2 % (2.0-8.0); NEUTROPHILS # 4.5 10^3/uL (1.5-8.5); NEUTROPHILS % 57.2 % (36.0-66.0); PLATELET COUNT, AUTOMATED 117 10^3/uL (150-450); RED BLOOD COUNT 4.84 10^6/uL (4.00-5.40); WHITE BLOOD COUNT 7.8 10^3/uL (4.0-10.0)
[2022-09-11 17:17] LABS: CHOLESTEROL RISK RATIO 4.53 (<5); HDL CHOLESTEROL 37.5 MG/DL (>40); LDL CHOLESTEROL 105.3 MG/DL (<100)
[2022-09-11 17:19] LABS: THYROID STIMULATING HORMONE 1.556 uIU/ML (0.55-4.78)
[2022-09-11 18:22] LABS: HEMOGLOBIN A1c 5.5 % (4.0-6.0)
== END ==
LOC: M LAB REF 16:33
PROVIDERS: ATTEND Family Medicine Addiction Medicine
DX: R58 Hemorrhage, not elsewhere classified (principal); E03.9 Hypothyroidism, unspecified; R73.03 Prediabetes

== ENCOUNTER 2022-11-01 13:01 | Emergency (ER) | payer OTHER ==
[~2022-11-01] VITALS: Ht 152.4 cm; Wt 55.4 kg
[2022-11-01 16:44] VITALS: BP 120/67
== END 2022-11-01 17:04 | disposition home or self-care (01) ==
LOC: M ED 13:01
DX: S92.002A Unspecified fracture of left calcaneus, initial encounter for closed fracture (principal); W11.XXXA Fall on and from ladder, initial encounter; Y99.0 Civilian activity done for income or pay; J45.909 Unspecified asthma, uncomplicated; G47.33 Obstructive sleep apnea (adult) (pediatric); N20.0 Calculus of kidney; E03.9 Hypothyroidism, unspecified; F41.9 Anxiety disorder, unspecified; M54.9 Dorsalgia, unspecified; Z88.1 Allergy status to other antibiotic agents; Z88.6 Allergy status to analgesic agent; Z88.8 Allergy status to other drugs, medicaments and biological substances; Z79.899 Other long term (current) drug therapy; Z79.51 Long term (current) use of inhaled steroids; Z79.890 Hormone replacement therapy

== ENCOUNTER → 2023-04-15 | Outpatient (REF) | payer OTHER ==
[2023-04-15 13:19] LABS: ALBUMIN 3.7 G/DL (3.2-5.2); ALKALINE PHOSPHATASE 105 U/L (46-116); ALT/SGPT 16 U/L (7.0-40); AST/SGOT 8 U/L (<34); BILIRUBIN,TOTAL 0.4 MG/DL (0.3-1.2); BLOOD UREA NITROGEN 24 MG/DL (9-23); CALCIUM LEVEL 9.5 MG/DL (8.3-10.6); CARBON DIOXIDE LEVEL 26 MMOL/L (20-31); CHLORIDE LEVEL 104 MMOL/L (98-107); CHOLESTEROL LEVEL 184 MG/DL (<200); CHOLESTEROL RISK RATIO 5.24 (<5); CREATININE FOR GFR 0.74 MG/DL (0.55-1.30); GLOMERULAR FILTRATION RATE > 60.0 (>45); GLUCOSE, FASTING 137 MG/DL (74-106); HDL CHOLESTEROL 35.1 MG/DL (>40); LDL CHOLESTEROL 112.5 MG/DL (<100); NON-HDL-C 148.9 MG/DL; POTASSIUM SERUM 3.8 MMOL/L (3.5-5.1); SODIUM LEVEL 141 MMOL/L (136-145); THYROID STIMULATING HORMONE 2.887 uIU/ML (0.55-4.78); TOTAL PROTEIN 6.9 G/DL (5.7-8.2); TRIGLYCERIDES LEVEL 182 MG/DL (<150)
[2023-04-15 13:33] LABS: HEMOGLOBIN A1c 5.3 % (4.0-6.0)
== END ==
LOC: M LAB REF 11:38
PROVIDERS: ATTEND Family Medicine Addiction Medicine
DX: R73.03 Prediabetes (principal)

== ENCOUNTER → 2023-08-14 | Outpatient (REF) | payer OTHER ==
[2023-08-14 18:16] LABS: BASO % 0.4 % (0.0-1.0); EOS # 0.1 10^3/uL (0.0-0.5); EOS % 1.7 % (0.0-3.0); HEMOGLOBIN 14.5 g/dl (12.0-15.5); LYMPH # 1.9 10^3/uL (1.5-5.0); LYMPH % 22.9 % (24.0-44.0); MEAN CORPUSCULAR HEMOGLOBIN 29.8 pg (27.0-33.0); MEAN CORPUSCULAR HGB CONC 32.2 g/dl (32.0-36.5); MEAN CORPUSCULAR VOLUME 92.4 fl (80.0-96.0); MONO # 0.8 10^3/uL (0.0-0.8); MONO % 9.7 % (2.0-8.0); NEUTROPHILS # 5.3 10^3/uL (1.5-8.5); NEUTROPHILS % 65.1 % (36.0-66.0); PLATELET COUNT, AUTOMATED 131 10^3/uL (150-450); RED BLOOD COUNT 4.87 10^6/uL (4.00-5.40); WHITE BLOOD COUNT 8.2 10^3/uL (4.0-10.0)
[2023-08-14 18:41] LABS: HEMOGLOBIN A1c 5.3 % (4.0-6.0)
[2023-08-14 18:53] LABS: ALKALINE PHOSPHATASE 92 U/L (46-116); ALT/SGPT 20 U/L (7.0-40); AST/SGOT 16 U/L (<34); BILIRUBIN,TOTAL 0.7 MG/DL (0.3-1.2); BLOOD UREA NITROGEN 22 MG/DL (9-23); CALCIUM LEVEL 9.9 MG/DL (8.3-10.6); CARBON DIOXIDE LEVEL 27 MMOL/L (20-31); CHLORIDE LEVEL 105 MMOL/L (98-107); CHOLESTEROL LEVEL 212 MG/DL (<200); CHOLESTEROL RISK RATIO 4.38 (<5); CREATININE FOR GFR 0.73 MG/DL (0.55-1.30); GLOMERULAR FILTRATION RATE > 60.0 (>45); GLUCOSE, FASTING 98 MG/DL (74-106); HDL CHOLESTEROL 48.4 MG/DL (>40); LDL CHOLESTEROL 142.8 MG/DL (<100); NON-HDL-C 163.6 MG/DL; POTASSIUM SERUM 4.6 MMOL/L (3.5-5.1); SODIUM LEVEL 141 MMOL/L (136-145); TOTAL PROTEIN 7.4 G/DL (5.7-8.2); TRIGLYCERIDES LEVEL 104 MG/DL (<150)
[2023-08-14 18:55] LABS: THYROID STIMULATING HORMONE 2.184 uIU/ML (0.55-4.78)
== END ==
LOC: M LAB REF 16:29
PROVIDERS: ATTEND Family Medicine Addiction Medicine
DX: E03.9 Hypothyroidism, unspecified (principal); D69.6 Thrombocytopenia, unspecified; R73.03 Prediabetes

== ENCOUNTER → 2023-10-19 | Outpatient (CLI) | payer OTHER ==
[2023-10-19 17:36] LABS: BASO % 0.2 % (0.0-1.0); EOS # 0.2 10^3/uL (0.0-0.5); EOS % 1.8 % (0.0-3.0); HEMATOCRIT 40.5 % (36.0-47.0); LYMPH # 2.2 10^3/uL (1.5-5.0); LYMPH % 24.4 % (24.0-44.0); MEAN CORPUSCULAR HGB CONC 32.1 g/dl (32.0-36.5); MEAN CORPUSCULAR VOLUME 90.2 fl (80.0-96.0); MONO # 1.1 10^3/uL (0.0-0.8); MONO % 11.7 % (2.0-8.0); NEUTROPHILS # 5.6 10^3/uL (1.5-8.5); NEUTROPHILS % 61.6 % (36.0-66.0); RED BLOOD COUNT 4.49 10^6/uL (4.00-5.40); WHITE BLOOD COUNT 9.1 10^3/uL (4.0-10.0)
[2023-10-19 17:45] LABS: ERYTHROCYTE SEDIMENTATION RATE 54 mm/hr (0-30)
[2023-10-19 18:03] LABS: C REACTIVE PROTEIN QUANTITATIV < 0.40 MG/DL (<1.0)
[2023-10-19 18:14] LABS: ALBUMIN 3.6 G/DL (3.2-5.2); ALKALINE PHOSPHATASE 160 U/L (46-116); ALT/SGPT 14 U/L (7.0-40); AST/SGOT 13 U/L (<34); BILIRUBIN,TOTAL 0.2 MG/DL (0.3-1.2); BLOOD UREA NITROGEN 18 MG/DL (9-23); CALCIUM LEVEL 9.3 MG/DL (8.3-10.6); CARBON DIOXIDE LEVEL 29 MMOL/L (20-31); CHLORIDE LEVEL 105 MMOL/L (98-107); CREATININE FOR GFR 0.65 MG/DL (0.55-1.30); GLOMERULAR FILTRATION RATE > 60.0 (>45); GLUCOSE, FASTING 73 MG/DL (74-106); POTASSIUM SERUM 4.5 MMOL/L (3.5-5.1); SODIUM LEVEL 140 MMOL/L (136-145); TOTAL PROTEIN 7.2 G/DL (5.7-8.2)
== END ==
LOC: M PLALAB 15:48
PROVIDERS: ATTEND Physician Assistant
DX: M47.896 Other spondylosis, lumbar region (principal); M43.16 Spondylolisthesis, lumbar region; S32.030A Wedge compression fracture of third lumbar vertebra, initial encounter for closed fracture

== ENCOUNTER → 2023-10-23 | Outpatient (CLI) | payer OTHER | LOC: M PLARAD 13:03 | PROVIDERS: ATTEND Physician Assistant | DX: M47.896 Other spondylosis, lumbar region (principal); M43.16 Spondylolisthesis, lumbar region; S32.030A Wedge compression fracture of third lumbar vertebra, initial encounter for closed fracture ==

== ENCOUNTER → 2023-11-27 | Outpatient (CLI) | payer OTHER | LOC: M RAD 07:41 | PROVIDERS: ATTEND Physician Assistant | DX: M51.36 Other intervertebral disc degeneration, lumbar region (principal) | CPT/HCPCS: 78315; A9503 ==

== ENCOUNTER → 2024-01-28 | Outpatient (CLI) | payer OTHER | LOC: M RAD 16:41 | PROVIDERS: ATTEND Physician Assistant | DX: R22.41 Localized swelling, mass and lump, right lower limb (principal) ==

== ENCOUNTER → 2024-01-29 | Outpatient (REF) | payer OTHER ==
[2024-01-29 14:33] LABS: THYROID STIMULATING HORMONE 3.235 uIU/ML (0.55-4.78)
[2024-01-29 14:38] LABS: ALBUMIN 3.4 G/DL (3.2-5.2); ALKALINE PHOSPHATASE 105 U/L (46-116); ALT/SGPT 12 U/L (7.0-40); AST/SGOT 9 U/L (<34); BILIRUBIN,TOTAL 0.5 MG/DL (0.3-1.2); BLOOD UREA NITROGEN 26 MG/DL (9-23); CALCIUM LEVEL 9.4 MG/DL (8.3-10.6); CARBON DIOXIDE LEVEL 30 MMOL/L (20-31); CHLORIDE LEVEL 104 MMOL/L (98-107); CHOLESTEROL LEVEL 178 MG/DL (<200); CHOLESTEROL RISK RATIO 6.15 (<5); CREATININE FOR GFR 0.71 MG/DL (0.55-1.30); GLOMERULAR FILTRATION RATE > 60.0 (>45); GLUCOSE, FASTING 116 MG/DL (74-106); HDL CHOLESTEROL 28.9 MG/DL (>40); LDL CHOLESTEROL 118.9 MG/DL (<100); NON-HDL-C 149.1 MG/DL; POTASSIUM SERUM 4.2 MMOL/L (3.5-5.1); SODIUM LEVEL 140 MMOL/L (136-145); TOTAL PROTEIN 6.9 G/DL (5.7-8.2); TRIGLYCERIDES LEVEL 151 MG/DL (<150)
[2024-01-29 14:46] LABS: HEMOGLOBIN A1c 5.5 % (4.0-6.0)
== END ==
LOC: M LAB REF 12:48
PROVIDERS: ATTEND Family Medicine Addiction Medicine
DX: R73.03 Prediabetes (principal)

== ENCOUNTER → 2024-05-03 | Outpatient (REF) | payer OTHER ==
[~2024-05-03] MED LIST changes: +GABA-1490 PO; -GABA600T4 PO
[2024-05-03 13:53] LABS: BASO % 0.4 % (0.0-1.0); EOS # 0.1 10^3/uL (0.0-0.5); EOS % 1.9 % (0.0-3.0); HEMATOCRIT 42.8 % (36.0-47.0); HEMOGLOBIN 13.6 g/dl (12.0-15.5); LYMPH # 1.2 10^3/uL (1.5-5.0); LYMPH % 15.4 % (24.0-44.0); MEAN CORPUSCULAR HEMOGLOBIN 29.1 pg (27.0-33.0); MEAN CORPUSCULAR HGB CONC 31.8 g/dl (32.0-36.5); MEAN CORPUSCULAR VOLUME 91.5 fl (80.0-96.0); MONO # 0.8 10^3/uL (0.0-0.8); MONO % 11.1 % (2.0-8.0); NEUTROPHILS # 5.3 10^3/uL (1.5-8.5); NEUTROPHILS % 70.9 % (36.0-66.0); PLATELET COUNT, AUTOMATED 114 10^3/uL (150-450); RED BLOOD COUNT 4.68 10^6/uL (4.00-5.40); WHITE BLOOD COUNT 7.5 10^3/uL (4.0-10.0)
[2024-05-03 14:00] LABS: THYROID STIMULATING HORMONE 3.536 uIU/ML (0.55-4.78)
[2024-05-03 14:02] LABS: ALBUMIN 3.7 G/DL (3.2-5.2); ALKALINE PHOSPHATASE 106 U/L (46-116); ALT/SGPT 13 U/L (7.0-40); AST/SGOT 10 U/L (<34); BILIRUBIN,TOTAL 0.3 MG/DL (0.3-1.2); BLOOD UREA NITROGEN 19 MG/DL (9-23); CALCIUM LEVEL 9.6 MG/DL (8.3-10.6); CARBON DIOXIDE LEVEL 30 MMOL/L (20-31); CHLORIDE LEVEL 107 MMOL/L (98-107); CREATININE FOR GFR 0.77 MG/DL (0.55-1.30); GLOMERULAR FILTRATION RATE > 60.0 (>45); GLUCOSE, FASTING 92 MG/DL (74-106); POTASSIUM SERUM 4.2 MMOL/L (3.5-5.1); SODIUM LEVEL 142 MMOL/L (136-145)
[2024-05-03 14:15] LABS: HEMOGLOBIN A1c 5.2 % (4.0-6.0)
== END ==
LOC: M LAB REF 13:12
PROVIDERS: ATTEND Family Medicine Addiction Medicine
DX: R73.03 Prediabetes (principal); D69.6 Thrombocytopenia, unspecified

== ENCOUNTER → 2024-05-26 | Outpatient (CLI) | payer OTHER | LOC: M RAD 13:10 | PROVIDERS: ATTEND Physician Assistant | DX: M25.551 Pain in right hip (principal) ==

== ENCOUNTER → 2024-06-23 | Outpatient (CLI) | payer OTHER | LOC: M PLARAD 08:06 | PROVIDERS: ATTEND Physician Assistant | DX: S32.591A Other specified fracture of right pubis, initial encounter for closed fracture (principal); W18.30XA Fall on same level, unspecified, initial encounter; Y92.009 Unspecified place in unspecified non-institutional (private) residence as the place of occurrence of the external cause ==

== ENCOUNTER → 2024-11-09 | Outpatient (REF) | payer OTHER ==
[2024-11-09 14:03] LABS: ALBUMIN 3.7 G/DL (3.2-5.2); ALKALINE PHOSPHATASE 115 U/L (35-104); ALT/SGPT 18 U/L (7.0-40); AST/SGOT 14 U/L (<34); BILIRUBIN,TOTAL 0.3 MG/DL (0.3-1.2); BLOOD UREA NITROGEN 18 MG/DL (9-23); CARBON DIOXIDE LEVEL 27 MMOL/L (20-31); CHLORIDE LEVEL 106 MMOL/L (98-107); CHOLESTEROL LEVEL 186 MG/DL (<200); CHOLESTEROL RISK RATIO 4.97 (<5); CREATININE FOR GFR 0.76 MG/DL (0.55-1.30); GLOMERULAR FILTRATION RATE > 60.0 (>45); GLUCOSE, FASTING 114 MG/DL (74-106); HDL CHOLESTEROL 37.4 MG/DL (>40); LDL CHOLESTEROL 124.8 MG/DL (<100); NON-HDL-C 148.6 MG/DL; POTASSIUM SERUM 4.2 MMOL/L (3.5-5.1); SODIUM LEVEL 143 MMOL/L (136-145); TOTAL PROTEIN 7.2 G/DL (5.7-8.2); TRIGLYCERIDES LEVEL 119 MG/DL (<150)
[2024-11-09 14:07] LABS: THYROID STIMULATING HORMONE 1.247 uIU/ML (0.55-4.78)
== END ==
LOC: M LAB REF 12:11
PROVIDERS: ATTEND Family Medicine Addiction Medicine
DX: E03.9 Hypothyroidism, unspecified (principal)

== ENCOUNTER → 2024-12-29 | Outpatient (CLI) | payer OTHER | LOC: M WHC 13:25 | PROVIDERS: ATTEND Nurse Practitioner Family | DX: M81.0 Age-related osteoporosis without current pathological fracture (principal) ==

== ENCOUNTER → 2025-05-31 | Outpatient (CLI) | payer OTHER ==
[2025-05-31 13:45] LABS: BASO # 0.0 10^3/uL (0.0-0.2); BASO % 0.3 % (0.0-1.0); EOS # 0.2 10^3/uL (0.0-0.5); EOS % 1.9 % (0.0-3.0); LYMPH # 2.1 10^3/uL (1.5-5.0); LYMPH % 21.0 % (24.0-44.0); MONO # 0.9 10^3/uL (0.0-0.8); MONO % 8.9 % (2.0-8.0); NEUTROPHILS # 6.6 10^3/uL (1.5-8.5); NEUTROPHILS % 67.5 % (36.0-66.0); PLATELET COUNT, AUTOMATED 143 10^3/uL (150-450)
[2025-05-31 14:08] LABS: ALT/SGPT 16 U/L (7.0-40); AST/SGOT 15 U/L (<34); CALCIUM LEVEL 9.5 MG/DL (8.3-10.6); CARBON DIOXIDE LEVEL 32 MMOL/L (20-31); CHLORIDE LEVEL 103 MMOL/L (98-107); CREATININE FOR GFR 0.72 MG/DL (0.55-1.30); GLOMERULAR FILTRATION RATE > 90.0 (>45); POTASSIUM SERUM 4.0 MMOL/L (3.5-5.1); SODIUM LEVEL 142 MMOL/L (136-145)
[2025-05-31 14:14] LABS: INR 0.94
== END ==
LOC: M LAB 12:49
PROVIDERS: ATTEND Student in an Organized Health Care Education/Training Program
DX: S20.02XA Contusion of left breast, initial encounter (principal); X58.XXXA Exposure to other specified factors, initial encounter; Y92.9 Unspecified place or not applicable; Y93.9 Activity, unspecified; Y99.9 Unspecified external cause status